=== PATIENT | female | born 1995 | race American Indian/Alaskan Native ===

== ENCOUNTER 2018-11-05 09:37 | Emergency (ER) | payer SELFPAY ==
--- NOTE | 2018-11-05 10:31 | EDM.PDOC ---
ED HPI GENERAL MEDICAL PROBLEM - General Chief Complaint: Lower Extremity Injury/Pain Stated Complaint: FELL HURT LEFT ANKLE Time Seen by Provider: 11/05/18 10:29 Source of Information: Reports: Patient History Limitations: Reports: No Limitations - History of Present Illness INITIAL COMMENTS - FREE TEXT/NARRATIVE: pt was at [facility] last nite and was doing some drinking. She stepped in a hole and twisted her ankle on the left. She was not aware how painful it was until this am. She is having difficulty walking on the ankle. Onset: Other (happed in the middle of the nite) Duration: Hour(s): Location: Reports: Lower Extremity, Left Associated Symptoms: Reports: No Other Symptoms - Related Data Allergies Allergy/AdvReac Type Severity Reaction Status Date / Time No Known Allergies Allergy Verified 11/05/18 10:16 Home Meds: Home Meds Minocycline [Minocin] 11/05/18 [History] Past Medical History Musculoskeletal History: Reports: Fracture - Past Surgical History Musculoskeletal Surgical History: Reports: Arthroscopic Knee Social & Family History - Tobacco Use Smoking Status *Q: Never Smoker Review of Systems - Review of Systems Review Of Systems: See Below Constitutional: Reports: No Symptoms Eyes: Reports: No Symptoms Ears: Reports: No Symptoms Nose: Reports: No Symptoms Mouth/Throat: Reports: No Symptoms Respiratory: Reports: No Symptoms Cardiovascular: Reports: No Symptoms GI/Abdominal: Reports: No Symptoms Musculoskeletal: Reports: Other (pt has marked swelling and discoloration of the lateral left ankle. She is having alot of pain with it when she walks. ) ED EXAM, GENERAL - Physical Exam Exam: See Below Free Text/Narrative:: pt arrived after twisting her ankle last nite. She has alot of swelling and discoloration of the ankle. Exam Limited By: No Limitations General Appearance: Alert, Moderate Distress Extremities: Other (left lateral ankle is very swollen and it is very discolored. She is tender over the lateral ankle. ) Course - Vital Signs Last Recorded V/S: Last Vital Signs Temp 36.6 C 11/05/18 10:21 Pulse 76 11/05/18 10:21 Resp 19 11/05/18 10:21 BP 127/71 11/05/18 10:21 Pulse Ox 97 11/05/18 10:21 - Orders/Labs/Meds Orders: Active Orders 24 hr Category Date Time Status Ankle Min 3V Lt [CR] Stat Exams 11/05/18 10:26 Taken Foot 2V Lt [CR] Stat Exams 11/05/18 10:26 Taken - Re-Assessments/Exams Free Text/Narrative Re-Assessment/Exam: 11/05/18 11:19 xray reveals no fracture. presnent in the foot or ankle. Departure - Departure Time of Disposition: 11:19 Disposition: Home, Self-Care 01 Condition: Fair Clinical Impression: Left ankle sprain - Discharge Information Referrals: PCP,None [Primary Care Provider] - Forms: ED Department Discharge Care Plan Goals: cool pack elevate, no weight bearing for the 3-4 days. cam walker, crutches. If pt has sig pain and swelling at the end of a week she should see her own provider. v - My Orders Last 24 Hours: My Active Orders 11/05/18 10:26 Ankle Min 3V Lt [CR] Stat Foot 2V Lt [CR] Stat - Assessment/Plan Last 24 Hours: My Active Orders 11/05/18 10:26 Ankle Min 3V Lt [CR] Stat Foot 2V Lt [CR] Stat
[2018-11-05] MEDS ORDERED: Ibuprofen 600 MG Tab PO ONE (11:23)
--- NOTE | 2018-11-05 11:39 | CRLCR ---
INDICATION: Left foot pain COMPARISON: none TECHNIQUE: Two-view left foot FINDINGS: The bones are anatomically aligned. There is no evidence of fracture, erosion or intrinsic bone lesion. The soft tissues appear normal. IMPRESSION: Negative left foot. Dictated by Drew Vallejo MD @ 11/05/2018 11:38:07 AM Dictated by: Drew Vallejo MD @ 11/05/2018 11:38:13 (Electronically Signed)
--- NOTE | 2018-11-05 11:41 | CRLCR ---
INDICATION: Ankle pain and swelling COMPARISON: none TECHNIQUE: Three-view left ankle FINDINGS: There is soft tissue swelling about the lateral malleolus. The bones are anatomically aligned. There is no evidence of fracture, erosion or intrinsic bone lesion. IMPRESSION: Soft tissue swelling. No fracture identified. Dictated by Drew Vallejo MD @ 11/05/2018 11:39:12 AM Dictated by: Drew Vallejo MD @ 11/05/2018 11:39:22 (Electronically Signed)
== END 2018-11-05 11:45 | disposition home or self-care (01) ==
LOC: JP.ED 09:37
DX: S93.402A Sprain of unspecified ligament of left ankle, initial encounter (principal); X50.1XXA Overexertion from prolonged static or awkward postures, initial encounter
CPT/HCPCS: 73610; 73620; 99283; A9270